=== PATIENT | female | born 1950 | race Caucasian/White ===

== ENCOUNTER 2021-10-20 19:23 | Outpatient (CLI) | payer OTHER, MEDICARE ==
[2021-10-20 19:45] LABS: Anion Gap 20 mmol/L (10-20); BUN (Urea Nitrogen) 25 mg/dL (9.8-20.1); Calc. Creatinine Clearance 0 mL/min (70-130); Calcium 8.9 mg/dL (7.8-10.44); Carbon Dioxide 26 mmol/L (23-31); Chloride 101 mmol/L (98-107); Estimated GFR 56; Glucose 70 mg/dL (83-110); Potassium 5.1 mmol/L (3.5-5.1); Sodium 142 mmol/L (136-145)
[2021-10-21 12:47] LABS: Free T4 (Free Thyroxine) 0.74 ng/dL (0.70-1.48); T4 5.2 ug/dL (4.87-11.72)
== END 2021-10-20 19:24 | disposition home or self-care (01) ==
LOC: MADLABSP 19:23
PROVIDERS: ATTEND Internal Medicine Cardiovascular Disease
DX: I11.0 Hypertensive heart disease with heart failure (principal); I50.9 Heart failure, unspecified; I25.10 Atherosclerotic heart disease of native coronary artery without angina pectoris
CPT/HCPCS: 80048; 84436; 84439